=== PATIENT | male | born 1970 | race Caucasian/White ===

== ENCOUNTER 2019-12-14 14:35 | Observation (INO) ==
[2019-12-14] MEDS ORDERED: SODIUM CHLORIDE 0.9% 1,000 ML IV STA (15:31)
[2019-12-14] MEDS ORDERED: LABETALOL 100 MG/20 ML VIAL IV STA (15:32)
[2019-12-14 15:38] LABS: Basophils # 0.1 10*3/uL (0.0-0.2); Basophils % 0.7 % (0.0-0.8); Eosinophils # 0.2 10*3/uL (0.0-0.87); Eosinophils % 2.1 % (0.00-10.9); Hematocrit 49.7 VOL% (42.0-52.0); Hemoglobin 17.4 GM/DL (14.0-18.0); Immature Granulocytes % 0.4 %; Immature Granulocytes Absolute 0.03 #; Lymphocytes # 1.5 10*3/uL (1.4-4.0); Lymphocytes % 21.7 % (21.2-54.2); Mean Corpuscular Volume 85.5 FL (87-102); Mean Platelet Volume 10.3 FL (9.6-12.0); Monocytes % 11.3 % (1.7-12.7); Neutrophils % 63.8 % (38.7-73.9); Platelet Count 258 T/CUMM (130-400); Red Blood Count 5.81 MC/CUMM (3.8-5.5); Red Cell Distribution Width 12.2 % (9.3-17.3); White Blood Count 7.1 T/CUMM (4-12)
[2019-12-14 15:45] LABS: PT Patient Result 10.9 SECS (9.8-11.9)
[2019-12-14] MEDS ORDERED: LABETALOL 20 MG/4 ML SYRINGE IV ONE (15:46)
[2019-12-14 15:51] LABS: Albumin 4.2 G/DL (3.4-5.0); Calcium 9.5 MG/DL (8.5-10.1); Osmolality,Calculated 275.8 MOS/KG (273-304); Total Protein 8.4 G/DL (6.4-8.3)
[2019-12-14 16:33] LABS: Bilirubin,Urine Negative (Negative); Blood, Urine Negative (Negative); Glucose,Urine (UA) 50 mg/dL (Negative); Ketones,Urine Negative (Negative); Mucus,Urine Occasional /LPF (Occasional); Nitrite,Urine Negative (Negative); Protein,Urine Negative; RBC,Urine 3 /HPF (0-4); Squamous Epithelial Cell,Urine Occasional /HPF (0-10); Urine Appearance CLEAR (Clear); Urine Color Yellow (Yellow); Urine Specific Gravity 1.018 (1.001-1.035); WBC,Urine <1 /HPF (0-6)
[2019-12-14 16:35] LABS: Barbiturates Screen,Urine Negative (Negative); Benzodiazepines Screen,Urine Negative (Negative); Cannabinoid Screen,Urine Negative (Negative); Opiate Screen,Urine Negative (Negative); Phencyclidine Screen,Urine Negative (Negative)
[2019-12-14] MEDS ORDERED: GLUCAGON 1 MG VIAL IM PRN ×2 (18:12→18:43)
[2019-12-14] MEDS ORDERED: DEXTROSE 50% 25 GM/50 ML VIAL IV PRN ×2 (18:12→18:43)
[2019-12-14] MEDS ORDERED: METOPROLOL TARTRATE 5 MG/5 ML VIAL IV PRN (18:20)
[2019-12-14] MEDS ORDERED: dilTIAZem Drip 125 MG/125 ML PREMIX IV SCH (20:30)
[2019-12-14] MEDS ORDERED: METOPROLOL TARTRATE 25 MG TABLET PO SCH (21:00)
[2019-12-14] MEDS ORDERED: ENOXAPARIN 40 MG/0.4 ML SYRINGE SUBCUT SCH (21:00)
[2019-12-14] MEDS: INSULIN LISPRO 100 UNIT/ML SUBCUT SCH (22:06)
[2019-12-14] MEDS ORDERED: INFLUENZA VIRUS VACCINE 0.5 ML SYRINGE IM ONE (23:27)
[2019-12-15 05:33] LABS: Basophils % 0.8 % (0.0-0.8); Eosinophils # 0.3 10*3/uL (0.0-0.87); Eosinophils % 5.2 % (0.00-10.9); Hematocrit 44.3 VOL% (42.0-52.0); Hemoglobin 15.5 GM/DL (14.0-18.0); Immature Granulocytes % 0.2 %; Immature Granulocytes Absolute 0.01 #; Lymphocytes # 1.2 10*3/uL (1.4-4.0); Lymphocytes % 24.3 % (21.2-54.2); Mean Corpuscular Volume 86.5 FL (87-102); Mean Platelet Volume 10.2 FL (9.6-12.0); Monocytes % 13.7 % (1.7-12.7); Neutrophils % 55.8 % (38.7-73.9); Platelet Count 221 T/CUMM (130-400); Red Blood Count 5.12 MC/CUMM (3.8-5.5); Red Cell Distribution Width 12.1 % (9.3-17.3)
[2019-12-15 05:52] LABS: Osmolality,Calculated 278.8 MOS/KG (273-304); Risk Ratio 4.66; Thyroid Stimulating Hormone 2.67 uIU/ml (0.358-3.74)
[2019-12-15] MEDS: INSULIN LISPRO 100 UNIT/ML SUBCUT SCH ×2 (08:45→13:42)
[2019-12-15] MEDS ORDERED: DILTIAZEM 30 MG TABLET PO SCH (09:00)
[2019-12-15] MEDS ORDERED: ENALAPRIL 5 MG TABLET PO SCH (09:00)
[2019-12-15] MEDS: DILTIAZEM 30 MG TABLET PO SCH ×2 (09:03)
[2019-12-15 12:14] VITALS: BP 146/84
[2019-12-15] MEDS ORDERED: GABAPENTIN 100 MG CAPSULE PO SCH (12:30)
[2019-12-15] MEDS ORDERED: ATORVASTATIN 40 MG TABLET PO SCH (21:00)
[2019-12-16] MEDS ORDERED: ASPIRIN EC 81 MG TABLET PO SCH (09:00)
== END 2019-12-15 15:22 | disposition home health service (06) ==
LOC: N.ED 14:35 → INTOOBSV 18:39 → N.EDINP 18:39 → SUATTDRO 18:39 → N.TELEN 19:57
PROVIDERS: ADMIT Family Medicine; ATTEND Internal Medicine